=== PATIENT | female | born 1940 | race Caucasian/White ===

== ENCOUNTER 2020-06-30 23:02 | Emergency (ER) | payer MEDICARE, OTHER ==
--- NOTE | 2020-06-30 23:40 | ERPHSYRPT ---
- History of Present Illness Time Seen by Provider: 06/30/20 23:15 Source: patient Exam Limitations: no limitations Physician History: Patient is a 79-year-old female who presents to our ED with a bleeding varicose vein in her right lower extremity. Patient states bleeding started while she was at home. Patient applied direct pressure but states that the bleeding continued. However upon arrival bleeding was significantly decreased. Upon my evaluation there was no active bleeding. Patient asymptomatic. No chest pain or shortness of breath. No nausea or vomiting. No dizziness or lightheadedness. Right lower extremities neurovascular intact distally. Patie nt otherwise asymptomatic. She voices no other complaints or concerns at this time. Timing/Duration: today Severity: moderate Modifying Factors: Improves With: other (Direct pressure improved bleeding.) Associated Symptoms: denies symptoms Allergies/Adverse Reactions: No Known Drug Allergies Allergy (Unverified 09/02/15 16:02) Home Medications: Aspirin 81 mg PO DAILY 09/02/15 [History] Lisinopril/Hydrochlorothiazide [Lisinopril-Hctz 20-12.5 mg Tab] 1 each PO DAILY 09/02/15 [History] Potassium Chloride [Klor-Con 8] 8 meq PO DAILY 09/02/15 [History] Propranolol HCl [Propranolol HCl ER] 80 mg PO DAILY 09/02/15 [History] Hx Tetanus, Diphtheria Vaccination/Date Given: Yes Hx Influenza Vaccination/Date Given: No Hx Pneumococcal Vaccination/Date Given: No - Review of Systems Constitutional: No Symptoms, No Fever, No Chills Eyes: No Symptoms Ears, Nose, & Throat: No Symptoms Respiratory: No Symptoms, No Cough, No Dyspnea Cardiac: No Symptoms, No Chest Pain, No Edema, No Syncope Abdominal/Gastrointestinal: No Symptoms, No Abdominal Pain, No Nausea, No Vomiting, No Diarrhea Genitourinary Symptoms: No Symptoms, No Dysuria Musculoskeletal: No Symptoms, No Back Pain, No Neck Pain Skin: No Symptoms, No Rash Neurological: No Symptoms, No Dizziness, No Focal Weakness, No Sensory Changes Psychological: No Symptoms Endocrine: No Symptoms Hematologic/Lymphatic: No Symptoms Immunological/Allergic: No Symptoms All Other Systems: Reviewed and Negative - Past Medical History Pertinent Past Medical History: Yes Neurological History: No Pertinent History ENT History: No Pertinent History Cardiac History: Hypertension Respiratory History: No Pertinent History Endocrine Medical History: No Pertinent History Musculoskeletal History: Arthritis GI Medical History: No Pertinent History Psycho-Social History: No Pertinent History - Past Surgical History Past Surgical History: Yes Cardiac: Cardiac Catheterization Gastrointestinal: Cholecystectomy Female Surgical History: Hysterectomy - Social History Smoking Status: Never smoker Exposure to second hand smoke: No Drug Use: none Patient Lives Alone: Yes - Nursing Vital Signs Nursing Vital Signs: Initial Vital Signs Temperature 98.1 F 06/30/20 23:11 Pulse Rate 108 H 06/30/20 23:11 Respiratory Rate 20 06/30/20 23:11 Blood Pressure 159/91 06/30/20 23:11 O2 Sat by Pulse Oximetry 98 06/30/20 23:11 Pain Scale Pain Intensity 0 - Physical Exam General Appearance: no apparent distress, alert Eye Exam: PERRL/EOMI, eyes nml inspection Ears, Nose, Throat Exam: normal ENT inspection, TMs normal, pharynx normal, moist mucous membranes Neck Exam: normal inspection, non-tender, supple, full range of motion Respiratory Exam: normal breath sounds, lungs clear, No respiratory distress Cardiovascular Exam: regular rate/rhythm, normal heart sounds, normal peripheral pulses Gastrointestinal/Abdomen Exam: soft, normal bowel sounds, No tenderness, No mass Back Exam: normal inspection, normal range of motion, No CVA tenderness, No vertebral tenderness Extremity Exam: normal inspection, normal range of motion, pelvis stable Neurologic Exam: alert, oriented x 3, cooperative, normal mood/affect, nml cerebellar function, nml station & gait, sensation nml, No motor deficits Skin Exam: normal color, warm, dry, No rash Lymphatic Exam: No adenopathy SpO2 Interpretation: normal SpO2: 98 O2 Delivery: Room Air - Course Nursing assessment & vital signs reviewed: Yes - Progress Progress: improved Progress Note: 06/30/20 23:38 Patient reassessed. Extremity remains neurovascular intact distally. Bleeding at all. We applied a dressing to the area of bleed. Patient will maintain the dressing on throughout the night. Patient agrees to follow-up with her primary care doctor within 48 hours for reevaluation. Patient voices no other complaints or concerns at this time. Counseled pt/family regarding: diagnosis, need for follow-up - Departure Departure Disposition: Home Clinical Impression: Varicose vein of leg Condition: Stable Critical Care Time: No Referrals: JONATHAN CABRERA [Primary Care Provider] - Additional Instructions: Discharge/Care Plan PAO KEVIN was seen on 06/30/20 in the Emergency Room. The patient was counseled regarding Diagnosis,Lab results, Imaging studies, need for follow up and when to return to the Emergency Room. Prescriptions given: Discharge Note I have spoken with the patient and/or caregivers. I have explained the patient's condition, diagnosis and treatment plan based on the information available to me at this time. I have answered the patient's and/or caregiver's questions and addressed any concerns. The patient and/or caregivers have as good understanding of the patient's diagnosis, condition and treatment plan as can be expected at this point. The vital signs have been stable. The patient's condition is stable and appropriate for discharge from the emergency department. The patient will pursue further outpatient evaluation with the primary care physician or other designated or consulting physician as outlined in the discharge instructions. The patient and/or caregivers are agreeable to this plan of care and follow-up instructions have been explained in detail. The patient and/or caregivers have received these instruction. The patient/and or caregivers are aware that any significant change in condition or worsening of symptoms should prompt an immediate return to this or the closest emergency department or call 911.
[2020-06-30 23:42] VITALS: BP 141/76; O2SAT 96
[2020-06-30 23:43] VITALS: PULSE 98
== END 2020-06-30 23:42 | disposition home or self-care (01) ==
LOC: ED 23:02
DX: I83.91 Asymptomatic varicose veins of right lower extremity (principal)
CPT/HCPCS: 99283

== ENCOUNTER 2021-02-27 21:48 | Observation (INO) | payer MEDICARE, OTHER ==
[2021-02-27] MEDS ORDERED: BABY ASPIRIN 81 MG CHEW PO ONE (21:53)
--- NOTE | 2021-02-27 21:53 | ERPHSYRPT ---
- History of Present Illness Time Seen by Provider: 02/27/21 21:53 Historian: patient, family Exam Limitations: no limitations Physician History: This is a 80-year-old white female who has atrial fibrillation and is on digoxin and Xarelto. She presents with sharp sudden onset left anterior chest pain. She has no cardiac history other than the atrial fibrillation. She has had a cholecystectomy in the past. She does not have any shortness of breath. Her pain is better now than when the onset occurred. This occurred approximate 9 PM this evening. She had no fever or chills. She has no cough. She has no nausea vomiting or diarrhea. She has no abdominal pain. Timing/Duration: today Activities at Onset: none Quality: sharpness Location: other (Left anterior chest) Chest Pain Radiation: no radiation Severity of Pain-Max: moderate Severity of Pain-Current: mild (Mild patient states that she does not want any pain medicine at this time) Modifying Factors: Improves With: nothing Associated Symptoms: denies symptoms Prior Chest Pain/Cardiac Workup: no prior chest pain Nitro Today/Relief: no nitro taken today Aspirin Treatment Today: no aspirin today Allergies/Adverse Reactions: No Known Drug Allergies Allergy (Verified 02/27/21 21:49) Home Medications: Potassium Chloride [Klor-Con 8] 8 meq PO BID 09/02/15 [History] Propranolol HCl [Propranolol HCl ER] 80 mg PO DAILY 09/02/15 [History] Furosemide 20 mg [Lasix 20 mg] 20 mg PO BID 06/30/20 [History] Metoprolol Succinate 50 mg [Toprol Xl 50 MG] 50 mg PO BID 06/30/20 [History] Digoxin 0.5 tab PO DAILY 02/27/21 [History] Rivaroxaban [Xarelto] 20 mg PO DAILY 02/27/21 [History] lisinopriL [Lisinopril] 5 mg PO DAILY 02/27/21 [History] Hx Tetanus, Diphtheria Vaccination/Date Given: Yes Hx Influenza Vaccination/Date Given: Yes Hx Pneumococcal Vaccination/Date Given: Yes Travel Risk - International Travel Have you traveled outside of the country in past 3 weeks: No - Vaccine Status Have you recieved a Covid-19 vaccination: No - Review of Systems Constitutional: No Symptoms Eyes: No Symptoms Ears, Nose, & Throat: No Symptoms Respiratory: No Symptoms Cardiac: Chest Pain Abdominal/Gastrointestinal: No Symptoms Genitourinary Symptoms: No Symptoms Musculoskeletal: No Symptoms Skin: No Symptoms Neurological: No Symptoms Psychological: No Symptoms Endocrine: No Symptoms Hematologic/Lymphatic: No Symptoms Immunological/Allergic: No Symptoms All Other Systems: Reviewed and Negative - Past Medical History Pertinent Past Medical History: Yes Neurological History: No Pertinent History ENT History: No Pertinent History Cardiac History: Hypertension Respiratory History: No Pertinent History Endocrine Medical History: No Pertinent History Musculoskeletal History: Arthritis GI Medical History: No Pertinent History, Gallbladder Disease History: No Pertinent History Psycho-Social History: No Pertinent History Female Reproductive Disorders: No Pertinent History Other Medical History: a-fib - Past Surgical History Past Surgical History: Yes Neuro Surgical History: No Pertinent History Cardiac: Cardiac Catheterization Respiratory: No Pertinent History Gastrointestinal: Cholecystectomy Musculoskeletal: No Pertinent History Female Surgical History: Hysterectomy - Social History Smoking Status: Never smoker Exposure to second hand smoke: No Drug Use: none Patient Lives Alone: Yes - Nursing Vital Signs Nursing Vital Signs: Initial Vital Signs Temperature 98.2 F 02/27/21 21:57 Pulse Rate 84 02/27/21 21:57 Respiratory Rate 26 H 02/27/21 21:57 Blood Pressure 163/101 02/27/21 21:57 O2 Sat by Pulse Oximetry 98 02/27/21 21:57 Pain Scale Pain Intensity 6 - Physical Exam General Appearance: no apparent distress, alert, anxiety Eye Exam: PERRL/EOMI, eyes nml inspection Ears, Nose, Throat Exam: normal ENT inspection, moist mucous membranes Neck Exam: normal inspection, non-tender, supple, full range of motion Respiratory Exam: normal breath sounds, chest tenderness, lungs clear, airway intact, No respiratory distress Cardiovascular Exam: normal peripheral pulses, irregular Gastrointestinal/Abdomen Exam: soft, normal bowel sounds, No tenderness Pelvic Exam: not done Rectal Exam: not done Back Exam: normal inspection, normal range of motion, No CVA tenderness, No vertebral tenderness Extremity Exam: normal inspection, normal range of motion, pelvis stable Neurologic Exam: alert, oriented x 3, cooperative, resource technician II-XII nml as tested, normal mood/affect, nml cerebellar function, nml station & gait, sensation nml Skin Exam: normal color, warm, dry Lymphatic Exam: No adenopathy SpO2 Interpretation: normal O2 Delivery: Room Air - Course Nursing assessment & vital signs reviewed: Yes EKG Interpreted by Me: RATE (84), A-fib, NORMAL AXIS, Other (There is new onset atrial fibrillation that is rate controlled when compared to EKG dated 09/02/2015) Ordered Tests: Active Orders 24 hr Category Date Time Status EKG-ER Only STAT Care 02/27/21 21:53 Active IV Insertion STAT Care 02/27/21 21:53 Active Pulse Oximetry (ED) STAT Care 02/27/21 21:53 Active CHEST 1 VIEW (PORTABLE) Stat Exams 02/27/21 21:53 Taken CHEST WITH CONTRAST [CT] Stat Exams 02/28/21 00:15 Taken CBC W DIFF Stat Lab 02/27/21 20:15 Completed CMP Stat Lab 02/27/21 20:15 Completed D-DIMER QUANTITATIVE Stat Lab 02/27/21 20:15 Completed NT PRO BNP Stat Lab 02/27/21 20:15 Completed PROTIME WITH INR Stat Lab 02/27/21 20:15 Completed TROPONIN Q3H Lab 02/27/21 20:15 Completed TROPONIN Q3H Lab 02/28/21 01:00 Ordered TROPONIN Q3H Lab 02/28/21 04:00 Ordered TROPONIN Q3H Lab 02/28/21 07:00 Ordered TROPONIN Q3H Lab 02/28/21 10:00 Ordered Medication Summary Discontinued Medications Generic Name Dose Route Start Last Admin Trade Name Fauzia PRN Reason Stop Dose Admin Aspirin 324 mg 02/27/21 21:53 02/27/21 22:15 Baby Aspirin 81 Mg Chew PO 02/27/21 21:54 324 mg STAT ONE Administration Sodium Chloride 500 mls @ 500 mls/hr 02/27/21 23:20 02/28/21 01:05 Sodium Chloride 0.9% 500 Ml IV 02/28/21 00:19 Infused .Q1H ONE Infusion Sodium Chloride Confirm 02/27/21 23:31 Sodium Chloride 0.9% 500 Ml Administered 02/27/21 23:32 Dose 500 mls @ ud IV .STK-MED ONE Morphine Sulfate 4 mg 02/28/21 00:32 02/28/21 00:38 Morphine Sulfate 4 Mg Inj IV 02/28/21 00:33 4 mg STAT ONE Administration Morphine Sulfate Confirm 02/28/21 00:35 Morphine Sulfate 4 Mg Inj Administered 02/28/21 00:36 Dose 4 mg .ROUTE .STK-MED ONE Ondansetron HCl 4 mg 02/28/21 00:32 02/28/21 00:38 Zofran 4 Mg/2 Ml Vial IV 02/28/21 00:33 4 mg STAT ONE Administration Ondansetron HCl Confirm 02/28/21 00:35 Zofran 4 Mg/2 Ml Vial Administered 02/28/21 00:36 Dose 4 mg .ROUTE .[facility] ONE Lab/Rad Data: Laboratory Result Diagrams 02/27/21 20:15 02/27/21 20:15 Laboratory Results 02/27/21 02/27/21 02/27/21 Range/Units 23:15 20:15 20:15 WBC (4.0-10.5) K/mm3 RBC (4.1-5.4) M/mm3 Hgb (12.0-16.0) gm/dl Hct (35-47) % MCV (78-100) fl MCH (26-32) pg MCHC (32-36) g/dl RDW (11.5-14.0) % Plt Count (150-450) K/mm3 MPV (7.5-11.0) fl Gran % (36.0-66.0) % Eos # (Auto) (0-0.5) Absolute Lymphs (auto) (1.0-4.6) Absolute Monos (auto) (0.0-1.3) Lymphocytes % (24.0-44.0) % Monocytes % (0.0-12.0) % Eosinophils % (0.00-5.0) % Basophils % (0.0-0.4) % Absolute Granulocytes (1.4-6.9) Basophils # (0-0.4) PT 23.2 H (9.4-12.5) SECONDS INR 1.97 (0.8-3.0) D-Dimer 1291 H* (215-500) ng/mL Sodium (137-145) mmol/L Potassium (3.5-5.1) mmol/L Chloride (98-107) mmol/L Carbon Dioxide (22-30) mmol/L Anion Gap (5-15) MEQ/L BUN (7-17) mg/dL Creatinine (0.52-1.04) mg/dL Estimated GFR ML/MIN Glucose (74-106) mg/dL Calcium (8.4-10.2) mg/dL Total Bilirubin (0.2-1.3) mg/dL AST (14-36) U/L ALT (0-35) U/L Alkaline Phosphatase (38-126) U/L Troponin I < 0.012 (0.000-0.034) ng/mL NT-Pro-B Natriuret Pep (0-1800) pg/mL Serum Total Protein (6.3-8.2) g/dL Albumin (3.5-5.0) g/dL Digoxin 0.8 (0.8-1.9) ng/mL 02/27/21 02/27/21 Range/Units 20:15 20:15 WBC 6.6 (4.0-10.5) K/mm3 RBC 4.16 (4.1-5.4) M/mm3 Hgb 12.7 (12.0-16.0) gm/dl Hct 40.8 (35-47) % MCV 98.1 (78-100) fl MCH 30.5 (26-32) pg MCHC 31.1 L (32-36) g/dl RDW 13.9 (11.5-14.0) % Plt Count 138 L (150-450) K/mm3 MPV 11.7 H (7.5-11.0) fl Gran % 47.4 (36.0-66.0) % Eos # (Auto) 0.14 (0-0.5) Absolute Lymphs (auto) 2.76 (1.0-4.6) Absolute Monos (auto) 0.56 (0.0-1.3) Lymphocytes % 41.8 (24.0-44.0) % Monocytes % 8.5 (0.0-12.0) % Eosinophils % 2.1 (0.00-5.0) % Basophils % 0.2 (0.0-0.4) % Absolute Granulocytes 3.14 (1.4-6.9) Basophils # 0.01 (0-0.4) PT (9.4-12.5) SECONDS INR (0.8-3.0) D-Dimer (215-500) ng/mL Sodium 139 (137-145) mmol/L Potassium 3.7 (3.5-5.1) mmol/L Chloride 103 (98-107) mmol/L Carbon Dioxide 24 (22-30) mmol/L Anion Gap 15.9 H (5-15) MEQ/L BUN 17 (7-17) mg/dL Creatinine 1.05 H (0.52-1.04) mg/dL Estimated GFR 53.9 ML/MIN Glucose 234 H (74-106) mg/dL Calcium 10.3 H (8.4-10.2) mg/dL Total Bilirubin 0.80 (0.2-1.3) mg/dL AST 35 (14-36) U/L ALT 18 (0-35) U/L Alkaline Phosphatase 156 H (38-126) U/L Troponin I (0.000-0.034) ng/mL NT-Pro-B Natriuret Pep 1260 (0-1800) pg/mL Serum Total Protein 7.3 (6.3-8.2) g/dL Albumin 4.2 (3.5-5.0) g/dL Digoxin (0.8-1.9) ng/mL - Progress Progress: improved, re-examined Air Movement: good Progress Note: 02/27/21 22:43 Chest x-ray shows cardiomegaly but no acute cardiopulmonary process 02/28/21 01:22 CAT scan of the chest with contrast shows no pulmonary embolus or aortic disse ction. There is no pulmonary infiltrate. Counseled pt/family regarding: lab results, diagnosis, need for follow-up, rad results - Departure Departure Disposition: Home Clinical Impression: Chest pain Condition: Stable Critical Care Time: No Referrals: JONATHAN CABRERA [Primary Care Provider] - Additional Instructions: Follow-up with your heart doctor, primary doctor on 03/02/2021 for further management. Return to the emergency department if symptoms recur/worsen. Your medications as prescribed.
[2021-02-27 22:26] LABS: Absolute Neutrophil Ct (ANC) 3.14 (1.4-6.9); BASOPHIL % 0.2 % (0.0-0.4); Basophil (Absolute #) 0.01 (0-0.4); Eosinophil % 2.1 % (0.00-5.0); Eosinophil (Absolute #) 0.14 (0-0.5); Hematocrit 40.8 % (35-47); Hemoglobin 12.7 gm/dl (12.0-16.0); Lymphocyte (Absolute #) 2.76 (1.0-4.6); Lymphocytes % 41.8 % (24.0-44.0); Mean Cell Volume 98.1 fl (78-100); Mean Corpuscular Hemoglobin 30.5 pg (26-32); Mean Corpuscular Hgb Concent. 31.1 g/dl (32-36); Mean Platelet Volume 11.7 fl (7.5-11.0); Monocyte (Absolute #) 0.56 (0.0-1.3); Monocytes % 8.5 % (0.0-12.0); Neutrophil % 47.4 % (36.0-66.0); Platelet Count 138 K/mm3 (150-450); Red Blood Count 4.16 M/mm3 (4.1-5.4); Red Cell Distribution Width 13.9 % (11.5-14.0); White Blood Count 6.6 K/mm3 (4.0-10.5)
[2021-02-27 22:34] LABS: INR 1.97 (0.8-3.0); PROTIME 23.2 SECONDS (9.4-12.5)
[2021-02-27 22:49] LABS: ALBUMIN 4.2 g/dL (3.5-5.0); ANION GAP 15.9 MEQ/L (5-15); BILIRUBIN,TOTAL 0.8 mg/dL (0.2-1.3); Calcium 10.3 mg/dL (8.4-10.2); Creatinine 1 1.05 mg/dL (0.52-1.04); EST GLOMERULAR FILTRATION RATE 53.9 ML/MIN; Potassium 3.7 mmol/L (3.5-5.1); Total Protein 7.3 g/dL (6.3-8.2)
[2021-02-27] MEDS ORDERED: Sodium Chloride 0.9% 500 ML 500 ML IV ONE ×2 (23:20→23:31)
[2021-02-28] MEDS ORDERED: Zofran 4 MG/2 ML VIAL IV ONE (00:32)
[2021-02-28] MEDS ORDERED: MORPHINE SULFATE 4 MG INJ IV ONE (00:32)
[2021-02-28] MEDS ORDERED: Zofran 4 MG/2 ML VIAL ONE (00:35)
[2021-02-28] MEDS ORDERED: MORPHINE SULFATE 4 MG INJ ONE (00:35)
[2021-02-28] MEDS ORDERED: Hydromorphone 1 mg/ml Injection IV ONE (01:46)
[2021-02-28] MEDS ORDERED: GI COCKTAIL 45 ML (Maalox/Lidocaine) PO ONE (01:47)
[2021-02-28] MEDS ORDERED: Hydromorphone 1 mg/ml Injection ONE (01:54)
[2021-02-28] MEDS ORDERED: MAALOX ES 30 ML UNIT DOSE ONE (01:54)
[2021-02-28] MEDS ORDERED: XYLOCAINE HCl Viscous ONE (01:54)
[2021-02-28] MEDS ORDERED: Hydromorphone 1 mg/ml Injection IV PRN (04:14)
[2021-02-28] MEDS ORDERED: TYLENOL 325 MG PO PRN (04:14)
[2021-02-28] MEDS ORDERED: Zofran 4 MG/2 ML VIAL IV PRN (04:14)
--- NOTE | 2021-02-28 05:56 | XRAY ---
Indication: Chest pain. Comparison: December 07, 2008. Portable chest demonstrates new cardiomegaly without focal infiltrate, consolidation, or large effusion. CT proven right lower lung vascular anomalies reported separately. Bony thorax intact again with osteopenia and double curvature scoliosis.
--- NOTE | 2021-02-28 06:00 | XRAY ---
Indication: Chest pain, elevated d-dimer, and atrial fibrillation. Multiple contiguous axial images obtained through the chest using 100 cc Isovue 370 contrast and PE protocol. Comparison: September 02, 2015. There is good opacification of the pulmonary arteries including lobar and segmental branches. No pulmonary embolus. Heart remains enlarged. Aorta normal in course and caliber without aneurysm/dissection. No pathologic mediastinal/hilar lymphadenopathy. 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 Remaining lungs again demonstrates a few tiny calcified granulomas and mild bibasilar subsegmental atelectasis/scarring. No infiltrate or effusion. Bony thorax is intact again with double curvature scoliosis. Impression: 1. Continued negative pulmonary embolus. No new or acute cardiopulmonary abnormalities. 2. Stable vascular anomalies in the right lower lung and upper abdomen detailed above. 3. Stable cardiomegaly, chronic bony findings, and old granulomatous disease. Comment: Preliminary interpretation made by C. No critical discrepancy.
--- NOTE | 2021-02-28 10:54 | PCM.HP ---
History of Present Illness - Chief Complaint Chief Complaint: Chest Pain Rule Out History of Present Illness: is a 80 year old female who presented to the ER with acute onset of severe pain in her epigastrium and lower chest, hx of a fib but no CAD. she was nauseated but no shortness of breath with the pain, she is improved today but still sore in the epigastrium. - Review of Systems Constitutional: No Fever, No Chills Respiratory: No Cough, No Short Of Breath Cardiac: Chest Pain, No Edema, No Syncope Abdominal/Gastrointestinal: Abdominal Pain, Nausea, No Vomiting, No Diarrhea Genitourinary Symptoms: No Dysuria Skin: No Rash Medications & Allergies Home Medications: Home Medication List Potassium Chloride [Klor-Con 8] 8 meq PO BID 09/02/15 [History Confirmed 02/27/21] Propranolol HCl [Propranolol HCl ER] 80 mg PO DAILY 09/02/15 [History Confirmed 02/27/21] Furosemide 20 mg [Lasix 20 mg] 20 mg PO BID 06/30/20 [History Confirmed 02/27/21] Metoprolol Succinate 50 mg [Toprol Xl 50 MG] 50 mg PO BID 06/30/20 [History Confirmed 02/27/21] Rivaroxaban [Xarelto] 20 mg PO DAILY 02/27/21 [History Confirmed 02/27/21] lisinopriL [Lisinopril] 5 mg PO DAILY 02/27/21 [History Confirmed 02/27/21] Digoxin 0.25 mg PO DAILY 02/28/21 [History Confirmed 02/28/21] Allergies/Adverse Reactions: Allergies Allergy/AdvReac Type Severity Reaction Status Date / Time No Known Drug Allergies Allergy Verified 02/27/21 21:49 - Past Medical History Past Medical History: Yes Neurological History: No Pertinent History ENT History: No Pertinent History Cardiac History: Hypertension Respiratory History: No Pertinent History Endocrine Medical History: No Pertinent History Musculoskelatal History: No Pertinent History GI Medical History: No Pertinent History, Gallbladder Disease History: No Pertinent History Pyscho-Social History: No Pertinent History Reproductive Disorders: No Pertinent History Comment: a-fib - Female History Are you now?: No - Past Surgical History Past Surgical History: Yes Neuro Surgical History: No Pertinent History Cardiac History: Cardiac Catheterization Respiratory Surgery: No Pertinent History GI Surgical History: Cholecystectomy Genitourinary Surgical Hx: No Pertinent History Musculskeletal Surgical Hx: No Pertinent History Female Surgical History: Hysterectomy - Social History Smoking Status: Never smoker Exposure to second hand smoke: No Alcohol: None Drug Use: none - Physical Exam Vital Signs: Vital Signs - 24 hr Temp Pulse Pulse Resp BP Pulse Ox 02/28/21 07:49 97.8 F 83 15 107/57 98 02/28/21 04:36 97.5 F 92 H 18 156/79 97 02/28/21 04:14 97 02/28/21 03:20 96 H 109/67 98 02/28/21 02:03 90 19 141/80 93 L 02/28/21 00:05 87 19 162/82 97 02/27/21 23:03 86 25 H 155/85 97 02/27/21 22:56 84 20 145/88 98 02/27/21 21:57 98.2 F 91 H 84 26 H 163/101 98 General Appearance: no apparent distress, alert Neurologic Exam: alert, oriented x 3, cooperative, normal mood/affect, nml cerebellar function, nml station & gait, sensation nml, No motor deficits Respiratory Exam: normal breath sounds, lungs clear, No respiratory distress Cardiovascular Exam: regular rate/rhythm, normal heart sounds, normal peripheral pulses Gastrointestinal/Abdomen Exam: soft, normal bowel sounds, No tenderness, No mass Extremity Exam: normal inspection, normal range of motion, pelvis stable Skin Exam: normal color, warm, dry, No rash Results - Labs Lab/Micro Results: Lab Results-Last 24 Hours 02/27/21 02/27/21 02/27/21 Range/Units 20:15 20:15 20:15 WBC 6.6 (4.0-10.5) K/mm3 RBC 4.16 (4.1-5.4) M/mm3 Hgb 12.7 (12.0-16.0) gm/dl Hct 40.8 (35-47) % MCV 98.1 (78-100) fl MCH 30.5 (26-32) pg MCHC 31.1 L (32-36) g/dl RDW 13.9 (11.5-14.0) % Plt Count 138 L (150-450) K/mm3 MPV 11.7 H (7.5-11.0) fl Gran % 47.4 (36.0-66.0) % Eos # (Auto) 0.14 (0-0.5) Absolute Lymphs (auto) 2.76 (1.0-4.6) Absolute Monos (auto) 0.56 (0.0-1.3) Lymphocytes % 41.8 (24.0-44.0) % Monocytes % 8.5 (0.0-12.0) % Eosinophils % 2.1 (0.00-5.0) % Basophils % 0.2 (0.0-0.4) % Absolute Granulocytes 3.14 (1.4-6.9) Basophils # 0.01 (0-0.4) PT 23.2 H (9.4-12.5) SECONDS INR 1.97 (0.8-3.0) D-Dimer 1291 H* (215-500) ng/mL Sodium 139 (137-145) mmol/L Potassium 3.7 (3.5-5.1) mmol/L Chloride 103 (98-107) mmol/L Carbon Dioxide 24 (22-30) mmol/L Anion Gap 15.9 H (5-15) MEQ/L BUN 17 (7-17) mg/dL Creatinine 1.05 H (0.52-1.04) mg/dL Estimated GFR 53.9 ML/MIN Glucose 234 H (74-106) mg/dL Calcium 10.3 H (8.4-10.2) mg/dL Total Bilirubin 0.80 (0.2-1.3) mg/dL AST 35 (14-36) U/L ALT 18 (0-35) U/L Alkaline Phosphatase 156 H (38-126) U/L Troponin I (0.000-0.034) ng/mL NT-Pro-B Natriuret Pep 1260 (0-1800) pg/mL Serum Total Protein 7.3 (6.3-8.2) g/dL Albumin 4.2 (3.5-5.0) g/dL Digoxin (0.8-1.9) ng/mL SARS-CoV-2 (PCR) (NEGATIVE) 02/27/21 02/27/21 02/28/21 Range/Units 20:15 23:15 02:15 WBC (4.0-10.5) K/mm3 RBC (4.1-5.4) M/mm3 Hgb (12.0-16.0) gm/dl Hct (35-47) % MCV (78-100) fl MCH (26-32) pg MCHC (32-36) g/dl RDW (11.5-14.0) % Plt Count (150-450) K/mm3 MPV (7.5-11.0) fl Gran % (36.0-66.0) % Eos # (Auto) (0-0.5) Absolute Lymphs (auto) (1.0-4.6) Absolute Monos (auto) (0.0-1.3) Lymphocytes % (24.0-44.0) % Monocytes % (0.0-12.0) % Eosinophils % (0.00-5.0) % Basophils % (0.0-0.4) % Absolute Granulocytes (1.4-6.9) Basophils # (0-0.4) PT (9.4-12.5) SECONDS INR (0.8-3.0) D-Dimer (215-500) ng/mL Sodium (137-145) mmol/L Potassium (3.5-5.1) mmol/L Chloride (98-107) mmol/L Carbon Dioxide (22-30) mmol/L Anion Gap (5-15) MEQ/L BUN (7-17) mg/dL Creatinine (0.52-1.04) mg/dL Estimated GFR ML/MIN Glucose (74-106) mg/dL Calcium (8.4-10.2) mg/dL Total Bilirubin (0.2-1.3) mg/dL AST (14-36) U/L ALT (0-35) U/L Alkaline Phosphatase (38-126) U/L Troponin I < 0.012 < 0.012 (0.000-0.034) ng/mL NT-Pro-B Natriuret Pep (0-1800) pg/mL Serum Total Protein (6.3-8.2) g/dL Albumin (3.5-5.0) g/dL Digoxin 0.8 (0.8-1.9) ng/mL SARS-CoV-2 (PCR) (NEGATIVE) 02/28/21 02/28/21 02/28/21 Range/Units 02:32 04:20 06:35 WBC (4.0-10.5) K/mm3 RBC (4.1-5.4) M/mm3 Hgb (12.0-16.0) gm/dl Hct (35-47) % MCV (78-100) fl MCH (26-32) pg MCHC (32-36) g/dl RDW (11.5-14.0) % Plt Count (150-450) K/mm3 MPV (7.5-11.0) fl Gran % (36.0-66.0) % Eos # (Auto) (0-0.5) Absolute Lymphs (auto) (1.0-4.6) Absolute Monos (auto) (0.0-1.3) Lymphocytes % (24.0-44.0) % Monocytes % (0.0-12.0) % Eosinophils % (0.00-5.0) % Basophils % (0.0-0.4) % Absolute Granulocytes (1.4-6.9) Basophils # (0-0.4) PT (9.4-12.5) SECONDS INR (0.8-3.0) D-Dimer (215-500) ng/mL Sodium (137-145) mmol/L Potassium (3.5-5.1) mmol/L Chloride (98-107) mmol/L Carbon Dioxide (22-30) mmol/L Anion Gap (5-15) MEQ/L BUN (7-17) mg/dL Creatinine (0.52-1.04) mg/dL Estimated GFR ML/MIN Glucose (74-106) mg/dL Calcium (8.4-10.2) mg/dL Total Bilirubin (0.2-1.3) mg/dL AST (14-36) U/L ALT (0-35) U/L Alkaline Phosphatase (38-126) U/L Troponin I < 0.012 < 0.012 (0.000-0.034) ng/mL NT-Pro-B Natriuret Pep (0-1800) pg/mL Serum Total Protein (6.3-8.2) g/dL Albumin (3.5-5.0) g/dL Digoxin (0.8-1.9) ng/mL SARS-CoV-2 (PCR) NEGATIVE (NEGATIVE) 02/28/21 Range/Units 10:00 WBC (4.0-10.5) K/mm3 RBC (4.1-5.4) M/mm3 Hgb (12.0-16.0) gm/dl Hct (35-47) % MCV (78-100) fl MCH (26-32) pg MCHC (32-36) g/dl RDW (11.5-14.0) % Plt Count (150-450) K/mm3 MPV (7.5-11.0) fl Gran % (36.0-66.0) % Eos # (Auto) (0-0.5) Absolute Lymphs (auto) (1.0-4.6) Absolute Monos (auto) (0.0-1.3) Lymphocytes % (24.0-44.0) % Monocytes % (0.0-12.0) % Eosinophils % (0.00-5.0) % Basophils % (0.0-0.4) % Absolute Granulocytes (1.4-6.9) Basophils # (0-0.4) PT (9.4-12.5) SECONDS INR (0.8-3.0) D-Dimer (215-500) ng/mL Sodium (137-145) mmol/L Potassium (3.5-5.1) mmol/L Chloride (98-107) mmol/L Carbon Dioxide (22-30) mmol/L Anion Gap (5-15) MEQ/L BUN (7-17) mg/dL Creatinine (0.52-1.04) mg/dL Estimated GFR ML/MIN Glucose (74-106) mg/dL Calcium (8.4-10.2) mg/dL Total Bilirubin (0.2-1.3) mg/dL AST (14-36) U/L ALT (0-35) U/L Alkaline Phosphatase (38-126) U/L Troponin I < 0.012 (0.000-0.034) ng/mL NT-Pro-B Natriuret Pep (0-1800) pg/mL Serum Total Protein (6.3-8.2) g/dL Albumin (3.5-5.0) g/dL Digoxin (0.8-1.9) ng/mL SARS-CoV-2 (PCR) (NEGATIVE) - Radiology Impressions Radiology Exams & Impressions: Radiology Procedures Category Date Time Status ABDOMEN AND PELVIS W/0 CONTRAS [CT] Routine Exams 02/28/21 10:50 Ordered CHEST 1 VIEW (PORTABLE) Stat Exams 02/27/21 21:53 Completed CHEST WITH CONTRAST [CT] Stat Exams 02/28/21 00:15 Completed Assessment/Plan (1) Chest pain Current Visit: Yes Status: Acute Assessment & Plan: [place] ruled out, symptoms appear noncardiac in my opinion Code(s): R07.9 - CHEST PAIN, UNSPECIFIED (2) Epigastric abdominal pain Current Visit: Yes Status: Acute Assessment & Plan: check amylase and lipase, add PPI and check ct abd/pel Code(s): R10.13 - EPIGASTRIC PAIN
[2021-02-28 11:18] LABS: AMYLASE 169 U/L (30-110); LIPASE 1083 U/L (23-300)
[2021-02-28] MEDS: PROTONIX 40 MG IV IV SCH (12:33)
[2021-02-28] MEDS ORDERED: MEDICATION INTERVENTION PO SCH (13:00)
[2021-02-28] MEDS: Lanoxin 0.125MG TABLET PO SCH (15:42)
[2021-02-28] MEDS: XARELTO 10 MG TABLET PO SCH (15:43)
[2021-02-28] MEDS: Klor Con 10 MEQ PO SCH ×2 (15:45→21:12)
[2021-02-28] MEDS: Toprol Xl 50 MG PO SCH ×2 (15:45→21:12)
[2021-02-28] MEDS: Zestril 5 MG PO SCH (15:46)
[2021-02-28] MEDS: LASIX 20 MG PO SCH (17:04)
--- NOTE | 2021-02-28 20:06 | XRAY ---
Indication: Epigastric pain. Multiple contiguous axial images obtained through the abdomen and pelvis without contrast. Comparison: September 02, 2015. CT chest with contrast including right lower lung and right upper abdomen vascular anomalies reported earlier in the day. Noncontrasted stomach and bowel loops nonobstructed again with minimal colonic diverticulosis. Stable prominent biliary tree given cholecystectomy. Kidneys and urinary bladder demonstrate minimal residual contrast from CT chest with contrast exam performed earlier in the day. No free fluid/air. Remaining liver, pancreas, spleen, adrenal glands, kidneys, ureters, and bladder are unremarkable. Stable minimal aortoiliac calcifications without AAA. Osseous structures intact again with mild lumbar degenerative spondylosis and moderate double curvature scoliosis. Impression: 1. Right lower lung and right upper abdomen vascular anomalies reported on CT chest earlier in the day. 2. Stable minimal colonic diverticulosis and chronic bony findings. 3. Remaining CT abdomen/pelvis without contrast exam is negative. Comment: Preliminary interpretation made by [facility]. No critical discrepancy.
[2021-02-28] MEDS: Sodium Chloride 0.9% 1000 ML 1,000 ML IV SCH ×2 (20:16→23:42)
[2021-02-28] MEDS ORDERED: NON-FORMULARY ITEM (Potassium Chloride [Klor-Con 8] 8 MEQ) PO SCH (22:00)
[2021-03-01 06:35] LABS: Absolute Neutrophil Ct (ANC) 1.65 (1.4-6.9); BASOPHIL % 0.3 % (0.0-0.4); Basophil (Absolute #) 0.01 (0-0.4); Eosinophil % 2.2 % (0.00-5.0); Eosinophil (Absolute #) 0.07 (0-0.5); Hematocrit 37.4 % (35-47); Hemoglobin 11.4 gm/dl (12.0-16.0); Lymphocyte (Absolute #) 1.17 (1.0-4.6); Lymphocytes % 36.4 % (24.0-44.0); Mean Cell Volume 99.5 fl (78-100); Mean Corpuscular Hemoglobin 30.3 pg (26-32); Mean Corpuscular Hgb Concent. 30.5 g/dl (32-36); Mean Platelet Volume 11.5 fl (7.5-11.0); Monocyte (Absolute #) 0.31 (0.0-1.3); Monocytes % 9.7 % (0.0-12.0); Neutrophil % 51.4 % (36.0-66.0); Platelet Count 110 K/mm3 (150-450); Red Blood Count 3.76 M/mm3 (4.1-5.4); Red Cell Distribution Width 14.1 % (11.5-14.0); White Blood Count 3.2 K/mm3 (4.0-10.5)
[2021-03-01 06:48] LABS: MAGNESIUM 2.1 mg/dL (1.6-2.3)
[2021-03-01 06:51] LABS: ALBUMIN 3.3 g/dL (3.5-5.0); ALKALINE PHOSPHATASE 119 U/L (38-126); ANION GAP 8.1 MEQ/L (5-15); BLOOD UREA NITROGEN 13 mg/dL (7-17); CHLORIDE 107 mmol/L (98-107); Calcium 9.2 mg/dL (8.4-10.2); Carbon Dioxide 28 mmol/L (22-30); Creatinine 1 0.74 mg/dL (0.52-1.04); EST GLOMERULAR FILTRATION RATE > 60.0 ML/MIN; Glucose 116 mg/dL (74-106); Potassium 4.1 mmol/L (3.5-5.1); SGOT/AST 32 U/L (14-36); SGPT/ALT 23 U/L (0-35); SODIUM 139 mmol/L (137-145); Total Protein 6.1 g/dL (6.3-8.2)
--- NOTE | 2021-03-01 09:17 | PCM.DS ---
Discharge Summary Date of Admission: 02/28/21 04:13 Admitting Physician: SHIRA ROBINS Primary Care Provider: JONATHAN CABRERA Allergies Allergies No Known Drug Allergies Allergy (Verified 02/27/21 21:49) Hospital Summary - Hospital Course Hospital Course: patient was admitted with epigastric/chest pain, found after admission to have elevated lipase, resolved with clear liquids. she is currently pain-free and hungry, feels normal. will discharge later today if tolerating regular diet, she has no gallbladder and no hepatobiliary obstruction on CT, she does not drink alcohol and has no new meds so etiology of pancreatitis is uncertain. - Vitals & Intake/Output Vital Signs: Vital Signs Temperature 98.3 F 03/01/21 07:40 Pulse Rate 76 03/01/21 07:40 Respiratory Rate 14 03/01/21 07:40 Blood Pressure 117/64 03/01/21 07:40 O2 Sat by Pulse Oximetry 97 03/01/21 07:40 Intake & Output: Intake & Output 02/26/21 02/27/21 02/28/21 03/01/21 11:59 11:59 11:59 11:59 Intake Total 1676 Balance 1676 Weight 90.9 kg 91.1 kg - Lab Result Diagrams: 03/01/21 05:50 03/01/21 05:50 Lab Results-Last 24 Hrs: Lab Results-Last 24 Hours 02/28/21 02/28/21 03/01/21 Range/Units 10:00 10:00 05:50 WBC 3.2 L (4.0-10.5) K/mm3 RBC 3.76 L (4.1-5.4) M/mm3 Hgb 11.4 L (12.0-16.0) gm/dl Hct 37.4 (35-47) % MCV 99.5 (78-100) fl MCH 30.3 (26-32) pg MCHC 30.5 L (32-36) g/dl RDW 14.1 H (11.5-14.0) % Plt Count 110 L (150-450) K/mm3 MPV 11.5 H (7.5-11.0) fl Gran % 51.4 (36.0-66.0) % Eos # (Auto) 0.07 (0-0.5) Absolute Lymphs (auto) 1.17 (1.0-4.6) Absolute Monos (auto) 0.31 (0.0-1.3) Lymphocytes % 36.4 (24.0-44.0) % Monocytes % 9.7 (0.0-12.0) % Eosinophils % 2.2 (0.00-5.0) % Basophils % 0.3 (0.0-0.4) % Absolute Granulocytes 1.65 (1.4-6.9) Basophils # 0.01 (0-0.4) Sodium (137-145) mmol/L Potassium (3.5-5.1) mmol/L Chloride (98-107) mmol/L Carbon Dioxide (22-30) mmol/L Anion Gap (5-15) MEQ/L BUN (7-17) mg/dL Creatinine (0.52-1.04) mg/dL Estimated GFR ML/MIN Glucose (74-106) mg/dL Calcium (8.4-10.2) mg/dL Magnesium (1.6-2.3) mg/dL Total Bilirubin (0.2-1.3) mg/dL AST (14-36) U/L ALT (0-35) U/L Alkaline Phosphatase (38-126) U/L Troponin I < 0.012 (0.000-0.034) ng/mL Serum Total Protein (6.3-8.2) g/dL Albumin (3.5-5.0) g/dL Amylase 169 H (30-110) U/L Lipase 1083 H (23-300) U/L 03/01/21 03/01/21 Range/Units 05:50 05:50 WBC (4.0-10.5) K/mm3 RBC (4.1-5.4) M/mm3 Hgb (12.0-16.0) gm/dl Hct (35-47) % MCV (78-100) fl MCH (26-32) pg MCHC (32-36) g/dl RDW (11.5-14.0) % Plt Count (150-450) K/mm3 MPV (7.5-11.0) fl Gran % (36.0-66.0) % Eos # (Auto) (0-0.5) Absolute Lymphs (auto) (1.0-4.6) Absolute Monos (auto) (0.0-1.3) Lymphocytes % (24.0-44.0) % Monocytes % (0.0-12.0) % Eosinophils % (0.00-5.0) % Basophils % (0.0-0.4) % Absolute Granulocytes (1.4-6.9) Basophils # (0-0.4) Sodium 139 (137-145) mmol/L Potassium 4.1 (3.5-5.1) mmol/L Chloride 107 (98-107) mmol/L Carbon Dioxide 28 (22-30) mmol/L Anion Gap 8.1 (5-15) MEQ/L BUN 13 (7-17) mg/dL Creatinine 0.74 (0.52-1.04) mg/dL Estimated GFR > 60.0 ML/MIN Glucose 116 H (74-106) mg/dL Calcium 9.2 (8.4-10.2) mg/dL Magnesium 2.1 (1.6-2.3) mg/dL Total Bilirubin 1.30 (0.2-1.3) mg/dL AST 32 (14-36) U/L ALT 23 (0-35) U/L Alkaline Phosphatase 119 (38-126) U/L Troponin I (0.000-0.034) ng/mL Serum Total Protein 6.1 L (6.3-8.2) g/dL Albumin 3.3 L (3.5-5.0) g/dL Amylase 68 (30-110) U/L Lipase 155 (23-300) U/L - Radiology Exams Ordered Rad Exams-Entire Visit: Radiology Procedures Category Date Time Status ABDOMEN AND PELVIS W/0 CONTRAS [CT] Routine Exams 02/28/21 10:50 Completed CHEST 1 VIEW (PORTABLE) Stat Exams 02/27/21 21:53 Completed CHEST WITH CONTRAST [CT] Stat Exams 02/28/21 00:15 Completed - Procedures and Test Procedures and Tests throughout Hospitalization: Therapy Orders & Screens 02/28/21 04:14 EKG REPEAT IN AM Comment: Discharge Exam General Appearance: no apparent distress, alert Neurologic Exam: alert, oriented x 3 Respiratory Exam: normal breath sounds, lungs clear, No respiratory distress Cardiovascular Exam: regular rate/rhythm, normal heart sounds Gastrointestinal/Abdomen Exam: soft, No tenderness, No mass Extremity Exam: normal inspection, normal range of motion Skin Exam: normal color, warm, dry Final Diagnosis/Problem List - Final Discharge Diagnosis/Problem (1) Chest pain Current Visit: Yes Status: Acute Assessment & Plan: [place] ruled out, elevated d-dimer but negative cta chest. pain seems to have been GI related then pancreatitis was discovered after admission to the floor. Code(s): R07.9 - CHEST PAIN, UNSPECIFIED (2) Acute pancreatitis Current Visit: Yes Status: Acute Assessment & Plan: resolved, home today if tolerates regular diet. recommend a bland/low fat diet at home Code(s): K85.90 - ACUTE PANCREATITIS WITHOUT NECROSIS OR INFECTION, UNSP (3) Epigastric abdominal pain Current Visit: Yes Status: Acute Code(s): R10.13 - EPIGASTRIC PAIN - Discharge Disposition: Home, Self-Care Condition: Stable Prescriptions: Continue Propranolol HCl [Propranolol HCl ER] 80 mg PO DAILY Potassium Chloride [Klor-Con 8] 8 meq PO BID Furosemide 20 mg [Lasix 20 mg] 20 mg PO BID Metoprolol Succinate 50 mg [Toprol Xl 50 MG] 50 mg PO BID lisinopriL [Lisinopril] 5 mg PO DAILY Rivaroxaban [Xarelto] 20 mg PO DAILY Digoxin 0.25 mg PO DAILY Follow up with: JONATHAN CABRERA [Primary Care Provider] - 1 Week
[2021-03-01] MEDS: Zestril 5 MG PO SCH (09:25)
[2021-03-01] MEDS: LASIX 20 MG PO SCH (09:26)
[2021-03-01] MEDS: Lanoxin 0.125MG TABLET PO SCH (09:26)
[2021-03-01] MEDS: XARELTO 10 MG TABLET PO SCH (09:26)
[2021-03-01] MEDS: Klor Con 10 MEQ PO SCH (09:26)
[2021-03-01] MEDS: Toprol Xl 50 MG PO SCH (09:26)
[2021-03-01] MEDS: PROTONIX 40 MG IV IV SCH (09:27)
[2021-03-01] MEDS ORDERED: NON-FORMULARY ITEM (Propranolol Hcl [Propranolol Hcl Er] 80 MG) PO SCH (10:00)
[2021-03-01] MEDS ORDERED: DIGOXIN 0.25 MG PO SCH (10:00)
[2021-03-01] MEDS ORDERED: NON-FORMULARY ITEM (Rivaroxaban [Xarelto] 20 MG) PO SCH (10:00)
[2021-03-01 12:34] VITALS: BP 119/69; PULSE 64; O2SAT 96
== END 2021-03-01 14:13 | disposition home or self-care (01) ==
LOC: ED 21:48 → MED SURG 02-28 04:13
PROVIDERS: ADMIT Family Medicine; ATTEND Family Medicine
DX: R07.9 Chest pain, unspecified (principal); K85.90 Acute pancreatitis without necrosis or infection, unspecified; I48.91 Unspecified atrial fibrillation; R74.8 Abnormal levels of other serum enzymes; R10.13 Epigastric pain; Z79.01 Long term (current) use of anticoagulants; Z79.899 Other long term (current) drug therapy; Z20.822 Contact with and (suspected) exposure to COVID-19
CPT/HCPCS: 36000; 36415; 71045; 71260; 74176; 80053; 80162; 82150; 83690; 83735; 83880; 84484; 85025; 85379; 85610; 93005; 93268; 94760; 96374; 96375; 99285; G0378; U0003; J1170; J2270; J2405; A9270-GY

== ENCOUNTER 2023-05-10 01:10 | Emergency (ER) | payer MEDICARE, OTHER ==
[2023-05-10 01:14] VITALS: TEMP 97.5
--- NOTE | 2023-05-10 01:34 | ERPHSYRPT ---
- History of Present Illness Source: patient Exam Limitations: no limitations Physician History: 82 yo WF w cough/coryza/dyspnea x 1 day. Pt denies chest pain/nausea/vomiting/diarrhea/melena/hematochezia/smoking/home O2 use. Timing/Duration: yesterday Activities at Onset: rest Severity of Dyspnea-Max: moderate Severity of Dyspnea-Current: mild Possible Cause: no prior episodes Modifying Factors: Improves With: activity, coughing Associated Symptoms: denies symptoms Allergies/Adverse Reactions: No Known Drug Allergies Allergy (Verified 05/10/23 01:11) Home Medications: Potassium Chloride [Klor-Con 8] 20 meq PO BID 09/02/15 [History] Furosemide 20 mg [Lasix 20 mg] 20 mg PO BID 06/30/20 [History] Metoprolol Succinate 50 mg [Toprol Xl 50 MG] 50 mg PO BID 06/30/20 [History] Rivaroxaban [Xarelto] 20 mg PO DAILY 02/27/21 [History] lisinopriL [Lisinopril] 5 mg PO DAILY 02/27/21 [History] Digoxin 0.125 mg PO DAILY 02/28/21 [History] Hx Tetanus, Diphtheria Vaccination/Date Given: Yes Hx Influenza Vaccination/Date Given: Yes Hx Pneumococcal Vaccination/Date Given: Yes Travel Risk - Vaccine Status Have you recieved a Covid-19 vaccination: Yes [employer]: [employer] - Review of Systems Constitutional: No Symptoms, Lethargy, Malaise Eyes: No Symptoms Ears, Nose, & Throat: No Symptoms, Nose Congestion, Nose Discharge Respiratory: No Symptoms, Cough, Dyspnea on Exertion (STARK) Cardiac: No Symptoms Abdominal/Gastrointestinal: No Symptoms Genitourinary Symptoms: No Symptoms Musculoskeletal: No Symptoms Skin: No Symptoms Neurological: No Symptoms Psychological: No Symptoms Endocrine: No Symptoms Hematologic/Lymphatic: No Symptoms Immunological/Allergic: No Symptoms - Past Medical History Pertinent Past Medical History: Yes Neurological History: No Pertinent History ENT History: No Pertinent History Cardiac History: Hypertension Respiratory History: No Pertinent History Endocrine Medical History: No Pertinent History Musculoskeletal History: No Pertinent History GI Medical History: No Pertinent History, Gallbladder Disease History: No Pertinent History Psycho-Social History: No Pertinent History Female Reproductive Disorders: No Pertinent History Other Medical History: a-fib - Past Surgical History Past Surgical History: Yes Neuro Surgical History: No Pertinent History Cardiac: Cardiac Catheterization Respiratory: No Pertinent History Gastrointestinal: Cholecystectomy Genitourinary: No Pertinent History Musculoskeletal: No Pertinent History Female Surgical History: Hysterectomy - Social History Smoking Status: Never smoker Exposure to second hand smoke: No Drug Use: none Patient Lives Alone: Yes - Nursing Vital Signs Nursing Vital Signs: Initial Vital Signs Temperature 97.5 F 05/10/23 01:11 Pulse Rate 95 H 05/10/23 01:11 Respiratory Rate 20 05/10/23 01:11 Blood Pressure 176/88 05/10/23 01:11 O2 Sat by Pulse Oximetry 94 L 05/10/23 01:11 Pain Scale Pain Intensity 0 Hypertensive - Physical Exam General Appearance: no apparent distress Eye Exam: PERRL/EOMI, eyes nml inspection Ears, Nose, Throat Exam: hearing grossly normal, normal ENT inspection, normal pharynx Neck Exam: normal inspection, non-tender, supple, full range of motion, No Brudzinski, No Kernig's, No meningismus Respiratory Exam: crackles/rales (Faint rales R base), wheezing (Mild diffuse expiratory wheezes) Cardiovascular/Chest Exam: other (Ir-Ir wo murmur) Abdominal/Gastrointestinal Exam: soft, normal bowel sounds, No tenderness Extremity Exam: non-tender, normal range of motion Peripheral Pulses Exam: carotid (R): 2+, carotid (L): 2+ Neurologic Exam: alert, oriented x 3, cooperative, chief engineer production II-XII nml as tested, normal mood/affect, nml cerebellar function, nml station & gait, sensation nml, No motor deficits, No sensory deficit Skin Exam: normal color, warm, dry, No rash Lymphatic Exam: No adenopathy SpO2 Interpretation: normal SpO2: 94 O2 Delivery: Room Air - Course Nursing assessment & vital signs reviewed: Yes EKG Interpreted by Me: RATE (Afib/Rate 95/Normal QT-QTc/RBBB/LVH w strain/Non specific ST-Twave changes) - Radiology Exams Chest X-ray Interpretation: Interpreted by me (Cardiomegaly/Chronic changes R base/Possible developing infiltrate R base) - CT Exams Chest CT Interpretation: Tele-radiologist Report (NAD) Ordered Tests: Active Orders 24 hr Category Date Time Status EKG-ER Only STAT Care 05/10/23 01:27 Completed CHEST 1 VIEW (PORTABLE) Stat Exams 05/10/23 01:29 Taken CHEST WITHOUT CONTRAST [CT] Stat Exams 05/10/23 01:51 Completed CBC W DIFF Stat Lab 05/10/23 01:35 Completed CMP Stat Lab 05/10/23 01:35 Completed Lactic Acid Stat Lab 05/10/23 01:48 Completed NT PRO BNPII Stat Lab 05/10/23 01:35 Completed PROTIME WITH INR Stat Lab 05/10/23 01:35 Completed PTT Stat Lab 05/10/23 01:35 Completed TROPONIN Q4H Lab 05/10/23 01:35 Completed Medication Summary Discontinued Medications Generic Name Dose Route Start Last Admin Trade Name Freq PRN Reason Stop Dose Admin Chlorphenir/Hydrocodone Polistirex 5 ml 05/10/23 03:14 05/10/23 03:55 Hydrocodone/Chlorphen P-Stirex 1 Ml Shannen.Er.12h PO 05/10/23 03:15 5 ml ONCE ONE Administration Ceftriaxone Sodium/Dextrose 1 g in 50 mls @ 100 mls/hr 05/10/23 03:40 05/10/23 03:45 Rocephin 1 Gm-D5w 50 Ml Bag IV 05/10/23 04:09 100 ml/hr STAT STA 100 mls/hr Administration Ceftriaxone Sodium/Dextrose Confirm 05/10/23 03:41 Rocephin 1 Gm-D5w 50 Ml Bag Administered 05/10/23 03:42 Dose 1 g in 50 mls @ ud IV .STK-MED ONE Lab/Rad Data: Laboratory Result Diagrams 05/10/23 01:35 05/10/23 01:35 Laboratory Results 05/10/23 05/10/23 05/10/23 Range/Units 01:48 01:38 01:35 WBC (4.0-10.5) x10^3/uL RBC (4.1-5.4) x10^6/uL Hgb (12.0-16.0) g/dL Hct (35-47) % MCV (78-100) fL MCH (26-32) pg MCHC (32-36) g/dL RDW (11.5-14.0) % Plt Count (150-450) x10^3/uL MPV (7.5-11.0) fL Gran % (36.0-66.0) % Immature Gran % (Auto) (0.00-0.4) % Nucleat RBC Rel Count (0.00-0.1) % Eos # (Auto) (0-0.5) x10^3/uL Immature Gran # (Auto) (0.00-0.03) x10^3u/L Absolute Lymphs (auto) (1.0-4.6) x10^3/uL Absolute Monos (auto) (0.0-1.3) x10^3/uL Absolute Nucleated RBC (0.00-0.01) x10^3u/L Lymphocytes % (24.0-44.0) % Monocytes % (0.0-12.0) % Eosinophils % (0.00-5.0) % Basophils % (0.0-0.4) % Absolute Granulocytes (1.4-6.9) x10^3/uL Basophils # (0-0.4) x10^3/uL PT (9.4-12.5) SECONDS INR (0.8-3.0) APTT (25.1-36.5) SECONDS Sodium (137-145) mmol/L Potassium (3.5-5.1) mmol/L Chloride (98-107) mmol/L Carbon Dioxide (22-30) mmol/L Anion Gap (5-15) MEQ/L BUN (7-17) mg/dL Creatinine (0.52-1.04) mg/dL Estimated GFR ML/MIN Glucose (74-106) mg/dL Lactic Acid 1.4 (0.4-2.0) Calcium (8.4-10.2) mg/dL Total Bilirubin (0.2-1.3) mg/dL AST (14-36) U/L ALT (0-35) U/L Alkaline Phosphatase (38-126) U/L Troponin I (0.000-0.034) ng/mL NT-Pro-B Natriuret Pep (<300) pg/mL Serum Total Protein (6.3-8.2) g/dL Albumin (3.5-5.0) g/dL Digoxin 0.5 L (0.8-1.9) ng/mL Influenza Type A Ag NEGATIVE (NEGATIVE) Influenza Type B Ag NEGATIVE (NEGATIVE) RSV (PCR) NEGATIVE (NEGATIVE) SARS-CoV-2 (PCR) NEGATIVE (NEGATIVE) 05/10/23 05/10/23 05/10/23 Range/Units 01:35 01:35 01:35 WBC (4.0-10.5) x10^3/uL RBC (4.1-5.4) x10^6/uL Hgb (12.0-16.0) g/dL Hct (35-47) % MCV (78-100) fL MCH (26-32) pg MCHC (32-36) g/dL RDW (11.5-14.0) % Plt Count (150-450) x10^3/uL MPV (7.5-11.0) fL Gran % (36.0-66.0) % Immature Gran % (Auto) (0.00-0.4) % Nucleat RBC Rel Count (0.00-0.1) % Eos # (Auto) (0-0.5) x10^3/uL Immature Gran # (Auto) (0.00-0.03) x10^3u/L Absolute Lymphs (auto) (1.0-4.6) x10^3/uL Absolute Monos (auto) (0.0-1.3) x10^3/uL Absolute Nucleated RBC (0.00-0.01) x10^3u/L Lymphocytes % (24.0-44.0) % Monocytes % (0.0-12.0) % Eosinophils % (0.00-5.0) % Basophils % (0.0-0.4) % Absolute Granulocytes (1.4-6.9) x10^3/uL Basophils # (0-0.4) x10^3/uL PT 14.4 H (9.4-12.5) SECONDS INR 1.35 (0.8-3.0) APTT 32.7 (25.1-36.5) SECONDS Sodium 137 (137-145) mmol/L Potassium 3.7 (3.5-5.1) mmol/L Chloride 103 (98-107) mmol/L Carbon Dioxide 26 (22-30) mmol/L Anion Gap 10.9 (5-15) MEQ/L BUN 16 (7-17) mg/dL Creatinine 0.76 (0.52-1.04) mg/dL Estimated GFR > 60.0 ML/MIN Glucose 123 H (74-106) mg/dL Lactic Acid (0.4-2.0) Calcium 10.2 (8.4-10.2) mg/dL Total Bilirubin 1.70 H (0.2-1.3) mg/dL AST 34 (14-36) U/L ALT 22 (0-35) U/L Alkaline Phosphatase 222 H (38-126) U/L Troponin I < 0.012 (0.000-0.034) ng/mL NT-Pro-B Natriuret Pep 2040 (<300) pg/mL Serum Total Protein 7.6 (6.3-8.2) g/dL Albumin 4.2 (3.5-5.0) g/dL Digoxin (0.8-1.9) ng/mL Influenza Type A Ag (NEGATIVE) Influenza Type B Ag (NEGATIVE) RSV (PCR) (NEGATIVE) SARS-CoV-2 (PCR) (NEGATIVE) 05/10/23 Range/Units 01:35 WBC 4.1 (4.0-10.5) x10^3/uL RBC 4.05 L (4.1-5.4) x10^6/uL Hgb 12.7 (12.0-16.0) g/dL Hct 39.9 (35-47) % MCV 98.5 (78-100) fL MCH 31.4 (26-32) pg MCHC 31.8 L (32-36) g/dL RDW 13.3 (11.5-14.0) % Plt Count 101 L (150-450) x10^3/uL MPV 11.2 H (7.5-11.0) fL Gran % 54.3 (36.0-66.0) % Immature Gran % (Auto) 0.2 (0.00-0.4) % Nucleat RBC Rel Count 0.0 (0.00-0.1) % Eos # (Auto) 0.11 (0-0.5) x10^3/uL Immature Gran # (Auto) 0.01 (0.00-0.03) x10^3u/L Absolute Lymphs (auto) 1.27 (1.0-4.6) x10^3/uL Absolute Monos (auto) 0.44 (0.0-1.3) x10^3/uL Absolute Nucleated RBC 0.00 (0.00-0.01) x10^3u/L Lymphocytes % 31.4 (24.0-44.0) % Monocytes % 10.9 (0.0-12.0) % Eosinophils % 2.7 (0.00-5.0) % Basophils % 0.5 (0.0-0.4) % Absolute Granulocytes 2.20 (1.4-6.9) x10^3/uL Basophils # 0.02 (0-0.4) x10^3/uL PT (9.4-12.5) SECONDS INR (0.8-3.0) APTT (25.1-36.5) SECONDS Sodium (137-145) mmol/L Potassium (3.5-5.1) mmol/L Chloride (98-107) mmol/L Carbon Dioxide (22-30) mmol/L Anion Gap (5-15) MEQ/L BUN (7-17) mg/dL Creatinine (0.52-1.04) mg/dL Estimated GFR ML/MIN Glucose (74-106) mg/dL Lactic Acid (0.4-2.0) Calcium (8.4-10.2) mg/dL Total Bilirubin (0.2-1.3) mg/dL AST (14-36) U/L ALT (0-35) U/L Alkaline Phosphatase (38-126) U/L Troponin I (0.000-0.034) ng/mL NT-Pro-B Natriuret Pep (<300) pg/mL Serum Total Protein (6.3-8.2) g/dL Albumin (3.5-5.0) g/dL Digoxin (0.8-1.9) ng/mL Influenza Type A Ag (NEGATIVE) Influenza Type B Ag (NEGATIVE) RSV (PCR) (NEGATIVE) SARS-CoV-2 (PCR) (NEGATIVE) - Progress Progress: improved Progress Note: 05/10/23 03:51 Nursing note and vital signs reviewed No food or housing insecurities noted All labs reviewed and shared w pt CXR results shared w pt CT of chest shared w pt Pt most likely has a viral URI wo evidence of infiltrate on CT. Since pt is at risk, 1gm IV Rocephin given, and Doxycycline 100mg po BID Rx sent to pharmacy. 5ml Tussionex sent home w pt. Discussed obs admit w pt, and she stated that she wants to be discharged for outpt f/u. Antibiotics given: Yes Counseled pt/family regarding: lab results, diagnosis, need for follow-up, rad results Medical Desision Making - Diagnostic Testing Diagnostic test were ordered, analyzed, and reviewed by me: Yes Radiological Interpretation: Interpreted by me, Teleradiologist Report - Risk of complications The pt has a mod risk of morbidity or mortality based on: Need for prescription drug management - Departure Departure Disposition: Home Clinical Impression: URI (upper respiratory infection) Condition: Stable Critical Care Time: No Referrals: JONATHAN CABRERA [Primary Care Provider] - Follow up/PCP as directed Instructions: Acute Bronchitis, Adult (DC), Shortness of Breath (Dyspnea) (DC) Additional Instructions: Follow up with your family MD in 1-2 days Fluids Start Doxycycline tomorrow Tussionex as needed for cough Return to ER for for increasing shortness of breath or temperature greater than 100.5 Prescriptions: Hydrocodone/Chlorphen P-Stirex [Hydrocodone-Chlorph ER Susp (TUSSIONEX)] 5 ml PO [id number] PRN 6 Days #60 ml MDD 10 ML PRN Reason: Cough Doxycycline Monohydrate 100 mg PO BID #14 cap
[2023-05-10 01:46] LABS: BASOPHIL % 0.5 % (0.0-0.4); Basophil (Absolute #) 0.02 x10^3/uL (0-0.4); Eosinophil % 2.7 % (0.00-5.0); Eosinophil (Absolute #) 0.11 x10^3/uL (0-0.5); Hematocrit 39.9 % (35-47); Hemoglobin 12.7 g/dL (12.0-16.0); IMMATURE GRAN # 0.01 x10^3u/L (0.00-0.03); IMMATURE GRAN % 0.2 % (0.00-0.4); Lymphocyte (Absolute #) 1.27 x10^3/uL (1.0-4.6); Lymphocytes % 31.4 % (24.0-44.0); Mean Cell Volume 98.5 fL (78-100); Mean Corpuscular Hemoglobin 31.4 pg (26-32); Mean Corpuscular Hgb Concent. 31.8 g/dL (32-36); Mean Platelet Volume 11.2 fL (7.5-11.0); Monocyte (Absolute #) 0.44 x10^3/uL (0.0-1.3); Monocytes % 10.9 % (0.0-12.0); Neutrophil % 54.3 % (36.0-66.0); Platelet Count 101 x10^3/uL (150-450); Red Blood Count 4.05 x10^6/uL (4.1-5.4); Red Cell Distribution Width 13.3 % (11.5-14.0); White Blood Count 4.1 x10^3/uL (4.0-10.5)
[2023-05-10 02:00] LABS: INR 1.35 (0.8-3.0); PROTIME 14.4 SECONDS (9.4-12.5); PTT 32.7 SECONDS (25.1-36.5)
[2023-05-10 02:08] LABS: ALBUMIN 4.2 g/dL (3.5-5.0); ALKALINE PHOSPHATASE 222 U/L (38-126); ANION GAP 10.9 MEQ/L (5-15); BLOOD UREA NITROGEN 16 mg/dL (7-17); CHLORIDE 103 mmol/L (98-107); Calcium 10.2 mg/dL (8.4-10.2); Carbon Dioxide 26 mmol/L (22-30); Creatinine 1 0.76 mg/dL (0.52-1.04); EST GLOMERULAR FILTRATION RATE > 60.0 ML/MIN; Glucose 123 mg/dL (74-106); NT PRO BNPII 2040 pg/mL (<300); Potassium 3.7 mmol/L (3.5-5.1); SGOT/AST 34 U/L (14-36); SGPT/ALT 22 U/L (0-35); SODIUM 137 mmol/L (137-145); Total Protein 7.6 g/dL (6.3-8.2)
[2023-05-10 02:21] LABS: INFLUENZA A NEGATIVE (NEGATIVE); INFLUENZA B NEGATIVE (NEGATIVE); RESPIRATORY SYNCTIAL VIRUS NEGATIVE (NEGATIVE); SARS-CoV-2 Xpert Express NEGATIVE (NEGATIVE)
--- NOTE | 2023-05-10 03:07 | XRAY ---
CLINICAL HISTORY:Abnormal CXR COMPARISON:02/27/2021 TECHNIQUE:Contiguous axial CT images of the chest were acquired without administration of intravenous contrast. Coronal and sagittal reconstructions were obtained. FINDINGS: There is a redemonstration of persistently elevated right hemidiaphragm with the intrathoracic bulge of the right hepatic dome. 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 The scanned pulmonary parenchyma shows no definite consolidative lesions. Stable sub-pleural calcified granuloma is redemonstrated in the right upper lobe laterally. No pneumothorax. No evidence of bronchiectasis or honeycombing. Central patent trachea. No endobronchial lesion is identified. No free or encysted pleural effusion. No pericardial effusion. No pathologically enlarged mediastinal, hilar or axillary lymph node was identified. There is an increased cardiothoracic ratio with a grossly dilated left atrium. There is also the suggestion of mild aortic root dilatation. Suspected pulmonary arterial hypertension with the main pulmonary trunk measuring 3.4 cm in diameter. Correlation with echocardiography is suggested. There is no definite mass lesion in the chest wall. The scanned upper abdomen shows postcholecystectomy changes with the suggestion of interval development of mild perihepatic free fluid. The rest of the visualized upper abdominal viscera do not show any gross abnormality in this limited unenhanced study. There is redemonstration of stable dextroscoliosis in the thoracic spine along with mild degenerative changes. IMPRESSION: In comparison with the previous: 1- Redemonstration of persistently elevated right hemidiaphragm with intrathoracic bulge of the right hepatic dome. 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 2- Stable sub-pleural calcified granuloma is redemonstrated in the right upper lobe laterally. 3- Increased cardiothoracic ratio with grossly dilated left atrium & suspected mild aortic root dilatation. 4- Suspected pulmonary arterial hypertension with dilated main pulmonary trunk. Correlation with echocardiography is suggested. 5- Postcholecystectomy changes with suggestion of interval development of mild perihepatic free fluid. 6- Stable dextroscoliosis in the thoracic spine. Electronically Signed by: Glenroy Moon MD. (05/10/2023 02:06:51 [facility])
[2023-05-10] MEDS ORDERED: HYDROCODONE-CHLORPHEN ER SUSP PO ONE (03:14)
[2023-05-10 03:32] VITALS: O2SAT 94
[2023-05-10 03:33] VITALS: BP 127/80; PULSE 98; RESP 24
[2023-05-10] MEDS ORDERED: ROCEPHIN 1 Gm-D5w 50 ml Bag** 1 G/50 ML IVPB IV STA (03:40)
[2023-05-10] MEDS ORDERED: ROCEPHIN 1 Gm-D5w 50 ml Bag** 1 G/50 ML IVPB IV ONE (03:41)
--- NOTE | 2023-05-10 08:47 | XRAY ---
Indication: Cough. 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 Bony thorax intact again with osteopenia, and double curvature scoliosis. No new/acute abnormalities.
== END 2023-05-10 04:36 | disposition home or self-care (01) ==
LOC: ED 01:10
DX: J06.9 Acute upper respiratory infection, unspecified (principal); R05.1 Acute cough; R06.00 Dyspnea, unspecified; I10 Essential (primary) hypertension; Z79.01 Long term (current) use of anticoagulants; Z79.891 Long term (current) use of opiate analgesic; Z79.899 Other long term (current) drug therapy; Z20.828 Contact with and (suspected) exposure to other viral communicable diseases
CPT/HCPCS: 0241U; 36415; 71045; 71250; 80053; 80162; 83605; 83880; 84484; 85025; 85610; 85730; 96365; 99284; J0696; A9270-GY